=== PATIENT | female | born 1980 | race American Indian/Alaskan Native ===

== ENCOUNTER 2018-03-04 06:32 | Inpatient (IN) | payer SELFPAY ==
[2018-03-04] MEDS ORDERED: LACTATED RINGERS 500 ML IV ONE (06:48)
[2018-03-04 08:38] LABS: Bilirubin,Urine NEG (Negative); Blood,Urine SM (Negative); Color,Urine Yellow (Yellow); Mucus,Urine FEW /HPF; Protein,Urine <15 mg/dL mg/dL (Negative); Urobilinogen,Urine < 2.0 mg/dL (<2.0)
[2018-03-04] MEDS ORDERED: BRETHINE SUB-Q ONE (09:30)
--- NOTE | 2018-03-04 09:41 | Ultrasound Report ---
COMPLETE OB ULTRASOUND: OB followup for well-being Gestation: Felipe Position: Cephalic STEPH = 6.3 cm Placenta: Anterior Placental Grade: 2 Heart Rate: 150 BPM BPD: 8.7 cm = 35 w 1 d HC: 30.8 cm = 34 w 3 d AC: 26.9 cm = 31 w 0 d FL: 6.4 cm = 32 w 6 d HC/AC Ratio: 1.15 Cephalic Index: 86.6 Estimated Weight: 1935 grams Clinical age = 32 w 5 d EDC: 04/24/18 US Gest. Age = 33 w 3 d EDC: 04/19/18 Impression: Oligohydramnios.
[2018-03-04] MEDS ORDERED: SENOKOT S PO PRN (10:04)
[2018-03-04] MEDS ORDERED: ZOFRAN IV PRN (10:04)
[2018-03-04] MEDS ORDERED: MILK OF MAGNESIA PO PRN (10:04)
[2018-03-04] MEDS ORDERED: MYLICON PO PRN (10:04)
[2018-03-04] MEDS ORDERED: TYLENOL PO PRN ×2 (10:04→10:11)
[2018-03-04] MEDS ORDERED: BENADRYL PO PRN (10:04)
[2018-03-04] MEDS ORDERED: ALUM-MAG HYDROX-SIMETH 200-200-20MG/5ML PO PRN (10:04)
[2018-03-04] MEDS ORDERED: COLACE PO PRN ×2 (10:04→10:11)
[2018-03-04 10:39] LABS: Basophils % (Auto) 0.2 % (0.0-1.8); Eosinophils % (Auto) 0.5 % (0.0-4.3); Hematocrit 39.4 % (30.3-42.9); Hemoglobin 13.6 gm/dl (10.1-14.3); Lymphocytes % (Auto) 13.4 % (13.4-35.0); Mean Corpuscular HGB Conc 35 % (30-34); Mean Corpuscular Hemoglobin 34 pg (28-32); Mean Corpuscular Volume 97 fl (79-97); Monocytes # (Auto) 0.6 K/mm3 (0.0-0.8); Monocytes % (Auto) 8.4 % (0.0-7.3); Platelet Count 181 K/mm3 (140-440); Red Blood Count 4.05 M/mm3 (3.65-5.03)
[2018-03-04] MEDS ORDERED: MAGNESIUM SULFATE 4GM/100ML 4 GM/100 ML BAG IV ONE (10:46)
[2018-03-04] MEDS ORDERED: MAGNESIUM SULFATE 40GM/1000ML 40 GM/1,000 ML BAG IV SCH (11:00)
[2018-03-04] MEDS: LACTATED RINGERS 1,000 ML IV SCH (11:15)
[2018-03-04] MEDS: MAGNESIUM SULFATE 40GM/1000ML 40 GM/1,000 ML BAG IV SCH (11:25)
[2018-03-04] MEDS: CELESTONE SOLUSPAN IM SCH (11:30)
[2018-03-04] MEDS: ZITHROMAX 500 MG in NACL 0.9% 250ML 250 ML IV SCH (12:43)
--- NOTE | 2018-03-04 12:50 | History and Physical Report ---
History of Present Illness Date of examination: 03/04/18 Date of admission: 03/04/18 11:28 Chief complaint: leaking at 5 am History of present illness: This is a 37 yo EDC 04/24/18at 32 weeks came into triage this am complaining of big gush of fluid and some contractions. She was checked and noted to be pooling +, fern neg, nitrazine + and STEPH noted to be 6.3. She is apatient with transfer of care into [facility] at 29 weeks. She is advanced maternal age and declined MFM evaluation. She is previous csec ( transverse) and desires repeat csec. She was dx at 24 weeks with UTI and urine cultrue still positive after treatment with macrobid. She is also rubella Immune. Past History Past Medical History: no pertinent history Past Surgical History: section Family/Genetic History: hypertension (father) Social history: no significant social history, . denies: smoking, alcohol abuse, prescription drug abuse - Obstetrical History Expected Date of Delivery: 04/24/18 Actual Gestation: 32 Week(s) 5 Day(s) : 3 Para: 1 Hx # Term Pregnancies: 1 Number of Pregnancies: 0 Spontaneous Abortions: 1 Induced : 0 Medications and Allergies Allergies Allergy/AdvReac Type Severity Reaction Status Date / Time No Known Allergies Allergy Verified 03/04/18 06:51 Home Medications Medication Instructions Recorded Confirmed Last Taken Type Pnv No.95/Ferrous Fum/Folic AC 1 tab PO QDAY 03/04/18 03/04/18 03/03/18 22:00 History [ Formula Tablet] Active Meds: Active Medications Acetaminophen (Tylenol) 650 mg PO Q4H PRN PRN Reason: Pain MILD(1-3)/Fever >100.5/DOWNEY Al Hydrox/Mg Hydrox/Simethicone (Alum-Mag Hydrox-Simeth 499-846-55yl/5ml) 30 ml PO Q6H PRN PRN Reason: Indigestion Betamethasone Acet/Betameth SodPhos (Celestone Soluspan) 12 mg IM Q24HR KEVIN Stop: 03/05/18 10:01 Last Admin: 03/04/18 11:30 Dose: 12 mg Diphenhydramine HCl (Benadryl) 25 mg PO Q6H PRN PRN Reason: Itching Docusate Sodium (Colace) 100 mg PO Q12H PRN PRN Reason: Constipation Ampicillin Sodium (Polycillin/Ns 2 Gm/100 Ml) 2 gm in 100 mls @ 100 mls/hr IV Q6HR KEVIN; Protocol Stop: 03/06/18 06:59 Azithromycin 500 mg/ Sodium (Chloride) 250 mls @ 250 mls/hr IV Q24HR KEVIN Last Admin: 03/04/18 12:43 Dose: 250 mls/hr Ceftriaxone Sodium (Rocephin/Ns 1 Gm/50 Ml) 1 gm in 50 mls @ 100 mls/hr IV Q24H KEVIN; Protocol Lactated Ringer's (Lactated Ringers) 1,000 mls @ 125 mls/hr IV DIRECT KEVIN Last Admin: 03/04/18 11:15 Dose: 125 mls/hr Magnesium Sulfate (Magnesium Sulfate 40gm/1000ml) 40 gm in 1,000 mls @ 25 mls/ hr IV DIRECT KEVIN Magnesium Hydroxide (Milk Of Magnesia) 30 ml PO QHS PRN PRN Reason: Laxative Effect Multivitamins/Iron/Calcium ( Vitamin) 1 each PO QDAY KEVIN Ondansetron HCl (Zofran) 4 mg IV Q6H PRN PRN Reason: Nausea And Vomiting Senna/Docusate Sodium (Senokot S) 2 tab PO Q12H PRN PRN Reason: Laxative Effect Simethicone (Mylicon) 80 mg PO Q6H PRN PRN Reason: Gas pain Review of Systems All systems: negative Genitourinary: leakage of fluid, contractions - Vital Signs Vital signs: Vital Signs Pulse BP 109 H 128/82 03/04/18 06:52 03/04/18 06:52 Temp Pulse Resp BP Pulse Ox 98.1 F 89 16 123/75 99 03/04/18 11:30 03/04/18 12:47 03/04/18 07:08 03/04/18 12:39 03/04/18 12:47 - Physical Exam Breasts: Positive: normal Cardiovascular: Regular rate, Normal S1 Lungs: Positive: Clear to auscultation, Normal air movement Abdomen: Positive: normal appearance, soft, normal bowel sounds. Negative: distention, tenderness, guarding Genitourinary (Female): Positive: normal external genitalia, normal perenium Vulva: both: normal Uterus: Positive: normal size, normal contour Anus/Rectum: Positive: normal perianal skin Extremities: Positive: normal Deep Tendon Reflex Grade: Normal +2 - Obstetrical FHR: category 1 Cervical Dilatation: 1 Cervical Effacement Percentage: 80 station: -3 Uterine Contraction Pattern: Regular Uterine Tone Measurement Phase: Contraction Uterine Contraction Intensity: Mild Results Result Diagrams: 03/04/18 10:18 Abnormal lab results 03/04/18 Range/Units 10:18 MCH 34 H (28-32) pg MCHC 35 H (30-34) % RDW 13.0 L (13.2-15.2) % [place] % (Auto) 8.4 H (0.0-7.3) % Lymph # 1.0 L (1.2-5.4) K/mm3 Seg Neutrophils % 77.5 H (40.0-70.0) % All other labs normal. Ultrasound: report reviewed Assessment and Plan A/P IUP 32+5 weeks, vertex PPROM contractions US reviewed vertex, oligo 6.3, latency abx with azithro and amp for 2 days IV then po BMZ ordered 12mg IM x24hrs ( 2) mag 4g/2g for neuroprotection consult with MFM consult with MARTINA
--- NOTE | 2018-03-04 14:27 | Consultation ---
History of Present Illness Consult date: 03/04/18 Reason for consult: prematurity (32 5/7 ROM aziza and previous c section) Documentation - Maternal Info Amniotic Membrane Rupture Date: 03/04/18 Amniotic Membrane Rupture Time: 05:00 - information: Height 5 ft 10 in Medications and Allergies Allergies Allergy/AdvReac Type Severity Reaction Status Date / Time No Known Allergies Allergy Verified 03/04/18 06:51 Home Medications Medication Instructions Recorded Confirmed Last Taken Type Pnv No.95/Ferrous Fum/Folic AC 1 tab PO QDAY 03/04/18 03/04/18 03/03/18 22:00 History [ Formula Tablet] Active Meds: Active Medications Acetaminophen (Tylenol) 650 mg PO Q4H PRN PRN Reason: Pain MILD(1-3)/Fever >100.5/DOWNEY Al Hydrox/Mg Hydrox/Simethicone (Alum-Mag Hydrox-Simeth 012-273-49oh/5ml) 30 ml PO Q6H PRN PRN Reason: Indigestion Betamethasone Acet/Betameth SodPhos (Celestone Soluspan) 12 mg IM Q24HR KEVIN Stop: 03/05/18 10:01 Last Admin: 03/04/18 11:30 Dose: 12 mg Diphenhydramine HCl (Benadryl) 25 mg PO Q6H PRN PRN Reason: Itching Docusate Sodium (Colace) 100 mg PO Q12H PRN PRN Reason: Constipation Ampicillin Sodium (Polycillin/Ns 2 Gm/100 Ml) 2 gm in 100 mls @ 100 mls/hr IV Q6HR KEVIN; Protocol Stop: 03/06/18 06:59 Azithromycin 500 mg/ Sodium (Chloride) 250 mls @ 250 mls/hr IV Q24HR KEVIN Last Admin: 03/04/18 12:43 Dose: 250 mls/hr Ceftriaxone Sodium (Rocephin/Ns 1 Gm/50 Ml) 1 gm in 50 mls @ 100 mls/hr IV Q24H KEVIN; Protocol Lactated Ringer's (Lactated Ringers) 1,000 mls @ 125 mls/hr IV DIRECT KEVIN Last Admin: 03/04/18 11:15 Dose: 125 mls/hr Magnesium Sulfate (Magnesium Sulfate 40gm/1000ml) 40 gm in 1,000 mls @ 25 mls/ hr IV DIRECT KEVIN Last Admin: 03/04/18 11:25 Dose: 2 gm/hr, 50 mls/hr Magnesium Hydroxide (Milk Of Magnesia) 30 ml PO QHS PRN PRN Reason: Laxative Effect Multivitamins/Iron/Calcium ( Vitamin) 1 each PO QDAY KEVIN Ondansetron HCl (Zofran) 4 mg IV Q6H PRN PRN Reason: Nausea And Vomiting Senna/Docusate Sodium (Senokot S) 2 tab PO Q12H PRN PRN Reason: Laxative Effect Simethicone (Mylicon) 80 mg PO Q6H PRN PRN Reason: Gas pain Exam Vital Signs Pulse BP 109 H 128/82 03/04/18 06:52 03/04/18 06:52 Temp Pulse Resp BP Pulse Ox 98.1 F 107 H 16 116/75 97 03/04/18 11:30 03/04/18 14:22 03/04/18 07:08 03/04/18 13:39 03/04/18 14:22 Results - Laboratory Findings 03/04/18 10:18 Abnormal lab results 03/04/18 Range/Units 10:18 MCH 34 H (28-32) pg MCHC 35 H (30-34) % RDW 13.0 L (13.2-15.2) % [place] % (Auto) 8.4 H (0.0-7.3) % Lymph # 1.0 L (1.2-5.4) K/mm3 Seg Neutrophils % 77.5 H (40.0-70.0) % Assessment and Plan Consult with mother and family member regarding POC if 32 5/7 week son is born today. Reviewed respiratory distress and benefits of surfactant treatment as well as nasal cannula O2 for support. Minimal stimulation and IVH discussed. Encouraged breast feeding and pumping. Reviewed nutritional status and requirements at this gestation inclusing umbilical lines, infection control, and proposed discharge time frame. All questions answered. Patient and family verbalized understanding. Encouraged to call with any further questions. Plan: NICU will attend delivery Call NICU with questions
[2018-03-04] MEDS: ROCEPHIN/NS 1 GM/50 ML 1 GM/50 ML BAG IV SCH (15:59)
--- NOTE | 2018-03-04 17:38 | Consultation ---
History of Present Illness Consult date: 03/04/18 Requesting physician: KIARA GARDNER History of present illness: 37 y/o RAJIV 04/24/18 now 32 5/7 weeks presented with PPROM at 5 am Reports gush of fluid at 5 am Denies vag bleeding, Chill, abd pain At bedside ctx's started at 5-8 minutes apart Pos pooling, Nit Pos IVF Preg in [place] Denies complications =------- OB history 2011 C/S at 40 weeks Breech F first tri SAB Denies med ds, STD, C/D/D US EFW at 1935 grams - 27% Abd soft NT ext NT tr edema EFM 140's ctx q 5 to 8" Past History Past Medical History: no pertinent history Past Surgical History: section Family/Genetic History: hypertension (father) - Obstetrical History : 3 Medications and Allergies Allergies Allergy/AdvReac Type Severity Reaction Status Date / Time No Known Allergies Allergy Verified 03/04/18 06:51 Home Medications Medication Instructions Recorded Confirmed Last Taken Type Pnv No.95/Ferrous Fum/Folic AC 1 tab PO QDAY 03/04/18 03/04/18 03/03/18 22:00 History [ Formula Tablet] Active Meds: Active Medications Acetaminophen (Tylenol) 650 mg PO Q4H PRN PRN Reason: Pain MILD(1-3)/Fever >100.5/DOWNEY Al Hydrox/Mg Hydrox/Simethicone (Alum-Mag Hydrox-Simeth 472-180-92cm/5ml) 30 ml PO Q6H PRN PRN Reason: Indigestion Betamethasone Acet/Betameth SodPhos (Celestone Soluspan) 12 mg IM Q24HR KEVIN Stop: 03/05/18 10:01 Last Admin: 03/04/18 11:30 Dose: 12 mg Diphenhydramine HCl (Benadryl) 25 mg PO Q6H PRN PRN Reason: Itching Docusate Sodium (Colace) 100 mg PO Q12H PRN PRN Reason: Constipation Ampicillin Sodium (Polycillin/Ns 2 Gm/100 Ml) 2 gm in 100 mls @ 100 mls/hr IV Q6HR KEVIN; Protocol Stop: 03/06/18 06:59 Azithromycin 500 mg/ Sodium (Chloride) 250 mls @ 250 mls/hr IV Q24HR KEVIN Last Admin: 03/04/18 12:43 Dose: 250 mls/hr Ceftriaxone Sodium (Rocephin/Ns 1 Gm/50 Ml) 1 gm in 50 mls @ 100 mls/hr IV Q24H KEVIN; Protocol Last Admin: 03/04/18 15:59 Dose: 100 mls/hr Lactated Ringer's (Lactated Ringers) 1,000 mls @ 125 mls/hr IV DIRECT KEVIN Last Admin: 03/04/18 11:15 Dose: 125 mls/hr Magnesium Sulfate (Magnesium Sulfate 40gm/1000ml) 40 gm in 1,000 mls @ 25 mls/ hr IV DIRECT KEVIN Last Admin: 03/04/18 11:25 Dose: 2 gm/hr, 50 mls/hr Magnesium Hydroxide (Milk Of Magnesia) 30 ml PO QHS PRN PRN Reason: Laxative Effect Multivitamins/Iron/Calcium ( Vitamin) 1 each PO QDAY KEVNI Ondansetron HCl (Zofran) 4 mg IV Q6H PRN PRN Reason: Nausea And Vomiting Senna/Docusate Sodium (Senokot S) 2 tab PO Q12H PRN PRN Reason: Laxative Effect Simethicone (Mylicon) 80 mg PO Q6H PRN PRN Reason: Gas pain - Vital Signs Vital signs: Vital Signs Pulse BP 109 H 128/82 03/04/18 06:52 03/04/18 06:52 Temp Pulse Resp BP Pulse Ox 98.1 F 109 H 16 121/75 99 03/04/18 11:30 03/04/18 17:08 03/04/18 07:08 03/04/18 16:41 03/04/18 17:08 Results Result Diagrams: 03/04/18 10:18 Abnormal lab results 03/04/18 Range/Units 10:18 MCH 34 H (28-32) pg MCHC 35 H (30-34) % RDW 13.0 L (13.2-15.2) % [place] % (Auto) 8.4 H (0.0-7.3) % Lymph # 1.0 L (1.2-5.4) K/mm3 Seg Neutrophils % 77.5 H (40.0-70.0) % All other labs normal. Assessment and Plan 1. Felipe IUP at 32 5/7 weeks 2. PPROM STEPH was 6.5 cm 3. IVF Preg 4. Prior C/S for Breech Recommendations: 1. Steroids for FLM 2. Mg - would dc if contractions increasing 3. Sign consent for repeat c/s 4. NICU consult 5. Antibiotics per protocol 6. Delivery at 34 weeks if undelivered 7. Delivery for S/S of chorio or compromise 8. BPP twice per week and US growth q 2 weeks 9. If Contractions increasing and active labor ensues would proceed with repeat C/S
[2018-03-04] MEDS ORDERED: TYLENOL PO ONE (17:43)
[2018-03-04] MEDS: POLYCILLIN/NS 2 GM/100 ML 2 GM/100 ML BAG IV SCH (17:50)
[2018-03-05] MEDS: POLYCILLIN/NS 2 GM/100 ML 2 GM/100 ML BAG IV SCH ×7 (00:15→23:57)
[2018-03-05] MEDS: LACTATED RINGERS 1,000 ML IV SCH ×2 (00:30→17:28)
[2018-03-05] MEDS: MAGNESIUM SULFATE 40GM/1000ML 40 GM/1,000 ML BAG IV SCH (06:56)
--- NOTE | 2018-03-05 07:20 | Ultrasound Report ---
BIOPHYSICAL PROFILE: INDICATION: well being. COMPARISON: None similar. TECHNIQUE: Transabdominal ultrasound with Doppler interrogation. 2 - breathing movements 2 - movements 2 - posture and tone 0 - Qualitative amniotic fluid volume 6 - TOTAL SCORE OF POSSIBLE 8 Heart Rate (bpm) 143 CONCLUSION: Findings, as above.
[2018-03-05] MEDS ORDERED: PRENATAL VITAMIN PO SCH (10:00)
[2018-03-05] MEDS: PRENATAL VITAMIN PO SCH (11:08)
[2018-03-05] MEDS: CELESTONE SOLUSPAN IM SCH (11:42)
--- NOTE | 2018-03-05 13:05 | Progress Note ---
Assessment and Plan A: IUP at 32w6d PPROM Previous section [facility] [employer] Advanced Maternal Age P: Pad counts and closely monitor for vaginal bleeding. If bleeding increases or she begins to contract again, plan to proceed with delivery. Continue latency antibiotics. Subjective - Subjective Date of service: 03/05/18 Principal diagnosis: IUP at 32w6d; PPROM, Interval history: Pt reports passing a clot when she stood after lying for several hours. Reports irregular contractions last night, but today she is not feeling many. She denies fever, chills or abdominal tenderness. Patient reports: loss of fluid, vaginal bleeding (per HPI), contractions (rare) , no new complaints Objective - Vital Signs Vital Signs: Vital Signs - 12hr 03/05/18 03/05/18 03/05/18 01:14 01:19 01:24 Temperature Pulse Rate 89 92 H 89 Respiratory Rate Blood Pressure Blood Pressure [Left] O2 Sat by Pulse 98 97 97 Oximetry 03/05/18 03/05/18 03/05/18 01:29 01:34 01:39 Temperature Pulse Rate 79 74 75 Respiratory Rate Blood Pressure 117/67 Blood Pressure [Left] O2 Sat by Pulse 98 99 98 Oximetry 03/05/18 03/05/18 03/05/18 01:44 01:49 01:54 Temperature Pulse Rate 82 75 91 H Respiratory Rate Blood Pressure Blood Pressure [Left] O2 Sat by Pulse 98 98 99 Oximetry 03/05/18 03/05/18 03/05/18 01:59 02:04 02:09 Temperature Pulse Rate 79 74 73 Respiratory Rate Blood Pressure Blood Pressure [Left] O2 Sat by Pulse 98 95 97 Oximetry 03/05/18 03/05/18 03/05/18 02:14 02:19 02:24 Temperature Pulse Rate 76 78 75 Respiratory Rate Blood Pressure Blood Pressure [Left] O2 Sat by Pulse 96 97 96 Oximetry 03/05/18 03/05/18 03/05/18 02:29 02:34 02:39 Temperature Pulse Rate 71 70 85 Respiratory Rate Blood Pressure 110/66 Blood Pressure [Left] O2 Sat by Pulse 97 96 96 Oximetry 03/05/18 03/05/18 03/05/18 02:44 02:49 02:54 Temperature Pulse Rate 72 70 75 Respiratory Rate Blood Pressure Blood Pressure [Left] O2 Sat by Pulse 95 97 100 Oximetry 03/05/18 03/05/18 03/05/18 02:59 03:04 03:09 Temperature Pulse Rate 76 69 66 Respiratory Rate Blood Pressure Blood Pressure [Left] O2 Sat by Pulse 100 100 100 Oximetry 03/05/18 03/05/18 03/05/18 03:14 03:19 03:24 Temperature Pulse Rate 64 68 66 Respiratory Rate Blood Pressure Blood Pressure [Left] O2 Sat by Pulse 100 100 100 Oximetry 03/05/18 03/05/18 03/05/18 03:29 03:34 03:39 Temperature Pulse Rate 67 68 84 Respiratory Rate Blood Pressure Blood Pressure [Left] O2 Sat by Pulse 100 100 100 Oximetry 03/05/18 03/05/18 03/05/18 03:41 03:44 03:49 Temperature Pulse Rate 72 78 66 Respiratory Rate Blood Pressure 108/60 Blood Pressure [Left] O2 Sat by Pulse 100 100 Oximetry 03/05/18 03/05/18 03/05/18 03:54 03:59 04:04 Temperature Pulse Rate 69 68 67 Respiratory Rate Blood Pressure Blood Pressure [Left] O2 Sat by Pulse 100 100 100 Oximetry 03/05/18 03/05/18 03/05/18 04:09 04:14 04:19 Temperature Pulse Rate 85 77 77 Respiratory Rate Blood Pressure Blood Pressure [Left] O2 Sat by Pulse 100 100 100 Oximetry 03/05/18 03/05/18 03/05/18 04:24 04:29 04:34 Temperature Pulse Rate 78 86 74 Respiratory Rate Blood Pressure Blood Pressure [Left] O2 Sat by Pulse 100 100 100 Oximetry 03/05/18 03/05/18 03/05/18 04:39 04:40 04:44 Temperature Pulse Rate 83 70 75 Respiratory Rate Blood Pressure 107/66 Blood Pressure [Left] O2 Sat by Pulse 100 100 Oximetry 03/05/18 03/05/18 03/05/18 04:49 04:54 04:59 Temperature Pulse Rate 68 63 64 Respiratory Rate Blood Pressure Blood Pressure [Left] O2 Sat by Pulse 100 100 100 Oximetry 03/05/18 03/05/18 03/05/18 05:04 05:09 05:14 Temperature Pulse Rate 69 66 67 Respiratory Rate Blood Pressure Blood Pressure [Left] O2 Sat by Pulse 100 100 100 Oximetry 03/05/18 03/05/18 03/05/18 05:19 05:24 05:29 Temperature Pulse Rate 66 65 87 Respiratory Rate Blood Pressure Blood Pressure [Left] O2 Sat by Pulse 100 100 99 Oximetry 03/05/18 03/05/18 03/05/18 05:34 05:39 05:44 Temperature Pulse Rate 70 69 72 Respiratory Rate Blood Pressure 102/62 Blood Pressure [Left] O2 Sat by Pulse 100 100 100 Oximetry 03/05/18 03/05/18 03/05/18 05:49 05:54 05:59 Temperature Pulse Rate 67 66 70 Respiratory Rate Blood Pressure Blood Pressure [Left] O2 Sat by Pulse 100 100 100 Oximetry 03/05/18 03/05/18 03/05/18 06:04 06:09 06:14 Temperature Pulse Rate 74 70 63 Respiratory Rate Blood Pressure Blood Pressure [Left] O2 Sat by Pulse 100 100 100 Oximetry 03/05/18 03/05/18 03/05/18 06:19 06:24 06:29 Temperature Pulse Rate 70 65 63 Respiratory Rate Blood Pressure Blood Pressure [Left] O2 Sat by Pulse 100 100 100 Oximetry 03/05/18 03/05/18 03/05/18 06:34 06:39 06:44 Temperature Pulse Rate 63 64 72 Respiratory Rate Blood Pressure 107/64 Blood Pressure [Left] O2 Sat by Pulse 100 100 100 Oximetry 03/05/18 03/05/18 03/05/18 06:49 06:54 06:55 Temperature Pulse Rate 76 91 H 51 L Respiratory Rate Blood Pressure Blood Pressure [Left] O2 Sat by Pulse 100 100 82 L Oximetry 03/05/18 03/05/18 03/05/18 07:00 07:05 07:10 Temperature Pulse Rate 79 87 77 Respiratory Rate Blood Pressure Blood Pressure [Left] O2 Sat by Pulse 100 100 100 Oximetry 03/05/18 03/05/18 03/05/18 07:15 07:20 07:25 Temperature Pulse Rate 80 78 78 Respiratory Rate Blood Pressure Blood Pressure [Left] O2 Sat by Pulse 100 100 100 Oximetry 03/05/18 03/05/18 03/05/18 07:30 07:35 07:39 Temperature Pulse Rate 75 79 75 Respiratory Rate Blood Pressure 99/56 Blood Pressure [Left] O2 Sat by Pulse 100 100 Oximetry 03/05/18 03/05/18 03/05/18 07:40 07:45 07:50 Temperature Pulse Rate 77 78 77 Respiratory Rate Blood Pressure Blood Pressure [Left] O2 Sat by Pulse 100 100 100 Oximetry 03/05/18 03/05/18 03/05/18 07:55 08:00 08:05 Temperature Pulse Rate 90 80 80 Respiratory Rate Blood Pressure Blood Pressure [Left] O2 Sat by Pulse 100 100 100 Oximetry 03/05/18 03/05/18 03/05/18 08:10 08:15 08:16 Temperature 97.8 F Pulse Rate 85 76 87 Respiratory 18 Rate Blood Pressure Blood Pressure 121/66 [Left] O2 Sat by Pulse 100 100 100 Oximetry 03/05/18 03/05/18 03/05/18 08:20 08:25 08:30 Temperature Pulse Rate 82 82 89 Respiratory Rate Blood Pressure 121/66 Blood Pressure [Left] O2 Sat by Pulse 100 100 100 Oximetry 03/05/18 03/05/18 03/05/18 08:35 08:39 08:40 Temperature Pulse Rate 76 75 82 Respiratory Rate Blood Pressure 102/59 Blood Pressure [Left] O2 Sat by Pulse 100 100 Oximetry 03/05/18 03/05/18 03/05/18 08:45 08:50 08:55 Temperature Pulse Rate 79 79 88 Respiratory Rate Blood Pressure Blood Pressure [Left] O2 Sat by Pulse 100 100 100 Oximetry 03/05/18 03/05/18 03/05/18 09:00 09:05 09:10 Temperature Pulse Rate 92 H 94 H 79 Respiratory Rate Blood Pressure Blood Pressure [Left] O2 Sat by Pulse 100 100 100 Oximetry 03/05/18 03/05/18 03/05/18 09:15 09:20 09:25 Temperature Pulse Rate 88 87 84 Respiratory Rate Blood Pressure Blood Pressure [Left] O2 Sat by Pulse 100 100 100 Oximetry 03/05/18 03/05/18 03/05/18 09:30 09:35 09:39 Temperature Pulse Rate 88 95 H 85 Respiratory Rate Blood Pressure 114/65 Blood Pressure [Left] O2 Sat by Pulse 97 97 Oximetry 03/05/18 03/05/18 03/05/18 09:40 09:45 09:50 Temperature Pulse Rate 96 H 90 98 H Respiratory Rate Blood Pressure Blood Pressure [Left] O2 Sat by Pulse 98 98 97 Oximetry 03/05/18 03/05/18 03/05/18 09:55 10:00 10:05 Temperature Pulse Rate 88 94 H 87 Respiratory Rate Blood Pressure Blood Pressure [Left] O2 Sat by Pulse 97 99 100 Oximetry 03/05/18 03/05/18 03/05/18 10:10 10:15 10:20 Temperature Pulse Rate 86 86 93 H Respiratory Rate Blood Pressure Blood Pressure [Left] O2 Sat by Pulse 100 100 99 Oximetry 03/05/18 03/05/18 03/05/18 10:25 10:39 10:41 Temperature Pulse Rate 89 89 90 Respiratory Rate Blood Pressure 116/70 Blood Pressure [Left] O2 Sat by Pulse 97 100 Oximetry 03/05/18 03/05/18 03/05/18 10:46 10:51 10:56 Temperature Pulse Rate 85 89 90 Respiratory Rate Blood Pressure Blood Pressure [Left] O2 Sat by Pulse 99 98 99 Oximetry 03/05/18 03/05/18 03/05/18 11:01 11:06 11:11 Temperature Pulse Rate 85 81 87 Respiratory Rate Blood Pressure Blood Pressure [Left] O2 Sat by Pulse 95 94 96 Oximetry 03/05/18 03/05/18 03/05/18 11:39 12:21 12:39 Temperature 98.1 F Pulse Rate 85 85 92 H Respiratory 18 Rate Blood Pressure 118/67 120/75 Blood Pressure 118/67 [Left] O2 Sat by Pulse Oximetry - Exam Breasts: deferred Abdomen: Present: soft (gravid ) Uterus: Present: normal (gravid ) FHR: category 2 Uterine Contraction Monitor Mode: External Cervical Dilatation: 1.5 Cervical Effacement Percentage: 60 station: -2 Uterine Contraction Pattern: Irregular Uterine Tone Measurement Phase: Resting Extremities: normal - Labs Labs: Abnormal Labs 03/04/18 03/05/18 03/05/18 10:18 04:00 05:56 MCH 34 H MCHC 35 H RDW 13.0 L [place] % (Auto) 8.4 H Lymph # 1.0 L Seg Neutrophils % 77.5 H Magnesium 5.30 H 5.50 H Laboratory Results - last 24 hr 03/05/18 03/05/18 04:00 05:56 Magnesium 5.30 H 5.50 H
[2018-03-05] MEDS: ROCEPHIN/NS 1 GM/50 ML 1 GM/50 ML BAG IV SCH (15:41)
[2018-03-05] MEDS: ZITHROMAX 500 MG in NACL 0.9% 250ML 250 ML IV SCH (20:19)
[2018-03-06] MEDS: MAGNESIUM SULFATE 40GM/1000ML 40 GM/1,000 ML BAG IV SCH (03:40)
[2018-03-06] MEDS: POLYCILLIN/NS 2 GM/100 ML 2 GM/100 ML BAG IV SCH (06:12)
--- NOTE | 2018-03-06 09:06 | Consultation ---
History of Present Illness Consult date: 03/06/18 Requesting physician: GURPREET RANKIN History of present illness: 37 y/o RAJIV 04/24/18 now 33 0/7 weeks presented with PPROM Reported light vag bleeding yesturday - now spotting - some leaking Denies Chill, abd pain Occ ctx Pos pooling, Nit Pos IVF Preg in [place] Denies complications =------- OB history 2011 C/S at 40 weeks Breech F first tri SAB Denies med ds, STD, C/D/D US EFW at 1935 grams - 27% Abd soft NT gravid NT ext nt no edema Past History Past Medical History: no pertinent history Past Surgical History: section Family/Genetic History: hypertension (father) - Obstetrical History : 3 Medications and Allergies Allergies Allergy/AdvReac Type Severity Reaction Status Date / Time No Known Allergies Allergy Verified 03/04/18 06:51 Home Medications Medication Instructions Recorded Confirmed Last Taken Type Pnv No.95/Ferrous Fum/Folic AC 1 tab PO QDAY 03/04/18 03/04/18 03/03/18 22:00 History [ Formula Tablet] Active Meds: Active Medications Acetaminophen (Tylenol) 650 mg PO Q4H PRN PRN Reason: Pain MILD(1-3)/Fever >100.5/DOWNEY Al Hydrox/Mg Hydrox/Simethicone (Alum-Mag Hydrox-Simeth 086-214-18yz/5ml) 30 ml PO Q6H PRN PRN Reason: Indigestion Diphenhydramine HCl (Benadryl) 25 mg PO Q6H PRN PRN Reason: Itching Docusate Sodium (Colace) 100 mg PO Q12H PRN PRN Reason: Constipation Azithromycin 500 mg/ Sodium (Chloride) 250 mls @ 250 mls/hr IV Q24HR KEVIN Last Admin: 03/05/18 20:19 Dose: 250 mls/hr Ceftriaxone Sodium (Rocephin/Ns 1 Gm/50 Ml) 1 gm in 50 mls @ 100 mls/hr IV Q24H KEVIN; Protocol Last Admin: 03/05/18 15:41 Dose: 100 mls/hr Lactated Ringer's (Lactated Ringers) 1,000 mls @ 125 mls/hr IV DIRECT KEVIN Last Admin: 03/05/18 17:28 Dose: 125 mls/hr Magnesium Sulfate (Magnesium Sulfate 40gm/1000ml) 40 gm in 1,000 mls @ 25 mls/ hr IV DIRECT KEVIN Last Admin: 03/06/18 03:40 Dose: 2 gm/hr, 50 mls/hr Magnesium Hydroxide (Milk Of Magnesia) 30 ml PO QHS PRN PRN Reason: Laxative Effect Multivitamins/Iron/Calcium ( Vitamin) 1 each PO QDAY KEVIN Last Admin: 03/05/18 11:08 Dose: 1 each Ondansetron HCl (Zofran) 4 mg IV Q6H PRN PRN Reason: Nausea And Vomiting Senna/Docusate Sodium (Senokot S) 2 tab PO Q12H PRN PRN Reason: Laxative Effect Simethicone (Mylicon) 80 mg PO Q6H PRN PRN Reason: Gas pain - Vital Signs Vital signs: Vital Signs Pulse BP 109 H 128/82 03/04/18 06:52 03/04/18 06:52 Temp Pulse Resp BP Pulse Ox 97.9 F 77 18 119/69 98 03/06/18 08:21 03/06/18 08:39 03/06/18 08:21 03/06/18 08:39 03/06/18 08:16 Results Result Diagrams: 03/04/18 10:18 Abnormal lab results 03/05/18 03/05/18 03/06/18 Range/Units 12:26 18:43 05:06 Magnesium 5.30 H 5.40 H 5.10 H (1.7-2.3) mg/dL All other labs normal. Assessment and Plan 1. Felipe IUP at 33 0/7 weeks 2. PPROM 3. Prior C/S 4. IVF Preg 5. Min spotting - Recs: 1. EFM 2. Delivery at 34 weeks 3. BPP Twice per week 4. Delivery for S/S of chorio or compromise
[2018-03-06] MEDS: PRENATAL VITAMIN PO SCH (10:38)
[2018-03-06] MEDS: ZITHROMAX 500 MG in NACL 0.9% 250ML 250 ML IV SCH (10:52)
[2018-03-06] MEDS: LACTATED RINGERS 1,000 ML IV SCH ×2 (12:32→22:48)
--- NOTE | 2018-03-06 13:06 | Progress Note ---
Assessment and Plan A: IUP at 33w0d PPROM on 03/04/18 on latency antibiotics Previous section [employer] Advanced Maternal Age P: Pad counts and closely monitor for vaginal bleeding. If bleeding increases or she begins to contract again, plan to proceed with delivery. Continue latency antibiotics. Subjective - Subjective Date of service: 03/06/18 Principal diagnosis: IUP at 33w0d; PPROM, Interval history: No overnight events Patient reports: loss of fluid, vaginal bleeding (spotting), contractions (rare) , no new complaints Objective - Vital Signs Vital Signs: Vital Signs - 12hr 03/06/18 03/06/18 03/06/18 01:19 01:24 01:29 Temperature Pulse Rate 67 67 68 Respiratory Rate Blood Pressure Blood Pressure [Left] O2 Sat by Pulse 100 100 100 Oximetry 03/06/18 03/06/18 03/06/18 01:34 01:39 01:44 Temperature Pulse Rate 69 67 75 Respiratory Rate Blood Pressure 100/57 Blood Pressure [Left] O2 Sat by Pulse 100 100 100 Oximetry 03/06/18 03/06/18 03/06/18 01:49 01:54 01:59 Temperature Pulse Rate 73 69 68 Respiratory Rate Blood Pressure Blood Pressure [Left] O2 Sat by Pulse 100 100 100 Oximetry 03/06/18 03/06/18 03/06/18 02:04 02:09 02:14 Temperature Pulse Rate 72 71 80 Respiratory Rate Blood Pressure Blood Pressure [Left] O2 Sat by Pulse 100 100 100 Oximetry 03/06/18 03/06/18 03/06/18 02:19 02:24 02:29 Temperature Pulse Rate 68 69 72 Respiratory Rate Blood Pressure Blood Pressure [Left] O2 Sat by Pulse 100 100 100 Oximetry 03/06/18 03/06/18 03/06/18 02:34 02:39 02:44 Temperature Pulse Rate 70 81 75 Respiratory Rate Blood Pressure 103/60 Blood Pressure [Left] O2 Sat by Pulse 97 96 100 Oximetry 03/06/18 03/06/18 03/06/18 02:49 02:54 02:55 Temperature Pulse Rate 81 68 68 Respiratory Rate Blood Pressure Blood Pressure [Left] O2 Sat by Pulse 100 97 94 Oximetry 03/06/18 03/06/18 03/06/18 02:59 03:04 03:09 Temperature Pulse Rate 68 68 68 Respiratory Rate Blood Pressure Blood Pressure [Left] O2 Sat by Pulse 94 95 95 Oximetry 03/06/18 03/06/18 03/06/18 03:14 03:16 03:19 Temperature Pulse Rate 67 68 69 Respiratory Rate Blood Pressure Blood Pressure [Left] O2 Sat by Pulse 95 94 95 Oximetry 03/06/18 03/06/18 03/06/18 03:21 03:24 03:27 Temperature Pulse Rate 72 69 72 Respiratory Rate Blood Pressure Blood Pressure [Left] O2 Sat by Pulse 94 96 94 Oximetry 03/06/18 03/06/18 03/06/18 03:29 03:34 03:35 Temperature Pulse Rate 91 H 78 68 Respiratory Rate Blood Pressure Blood Pressure [Left] O2 Sat by Pulse 96 97 93 Oximetry 03/06/18 03/06/18 03/06/18 03:39 03:40 03:43 Temperature 98.0 F Pulse Rate 70 70 75 Respiratory 18 Rate Blood Pressure 105/60 Blood Pressure 105/60 [Left] O2 Sat by Pulse 96 89 99 Oximetry 03/06/18 03/06/18 03/06/18 03:44 03:48 03:49 Temperature Pulse Rate 69 84 73 Respiratory Rate Blood Pressure Blood Pressure [Left] O2 Sat by Pulse 95 90 97 Oximetry 03/06/18 03/06/18 03/06/18 03:54 03:59 04:04 Temperature Pulse Rate 77 96 H 74 Respiratory Rate Blood Pressure Blood Pressure [Left] O2 Sat by Pulse 97 94 95 Oximetry 03/06/18 03/06/18 03/06/18 04:09 04:14 04:19 Temperature Pulse Rate 81 75 78 Respiratory Rate Blood Pressure Blood Pressure [Left] O2 Sat by Pulse 96 97 97 Oximetry 03/06/18 03/06/18 03/06/18 04:24 04:30 04:35 Temperature Pulse Rate 78 72 72 Respiratory Rate Blood Pressure Blood Pressure [Left] O2 Sat by Pulse 97 97 97 Oximetry 03/06/18 03/06/18 03/06/18 04:39 04:40 04:45 Temperature Pulse Rate 70 71 73 Respiratory Rate Blood Pressure 90/54 Blood Pressure [Left] O2 Sat by Pulse 97 98 Oximetry 03/06/18 03/06/18 03/06/18 04:50 04:55 05:00 Temperature Pulse Rate 72 72 72 Respiratory Rate Blood Pressure Blood Pressure [Left] O2 Sat by Pulse 98 98 98 Oximetry 03/06/18 03/06/18 03/06/18 05:05 05:10 05:15 Temperature Pulse Rate 73 103 H 74 Respiratory Rate Blood Pressure Blood Pressure [Left] O2 Sat by Pulse 98 99 100 Oximetry 03/06/18 03/06/18 03/06/18 05:16 05:20 05:25 Temperature Pulse Rate 92 H 72 72 Respiratory Rate Blood Pressure Blood Pressure [Left] O2 Sat by Pulse 91 97 96 Oximetry 03/06/18 03/06/18 03/06/18 05:30 05:35 05:39 Temperature Pulse Rate 70 71 70 Respiratory Rate Blood Pressure 104/57 Blood Pressure [Left] O2 Sat by Pulse 93 94 Oximetry 03/06/18 03/06/18 03/06/18 05:40 05:45 05:46 Temperature Pulse Rate 71 72 89 Respiratory Rate Blood Pressure Blood Pressure [Left] O2 Sat by Pulse 96 96 89 Oximetry 03/06/18 03/06/18 03/06/18 05:50 05:53 05:55 Temperature Pulse Rate 76 80 80 Respiratory Rate Blood Pressure Blood Pressure [Left] O2 Sat by Pulse 97 94 94 Oximetry 03/06/18 03/06/18 03/06/18 05:58 06:00 06:05 Temperature Pulse Rate 77 73 71 Respiratory Rate Blood Pressure Blood Pressure [Left] O2 Sat by Pulse 94 96 97 Oximetry 03/06/18 03/06/18 03/06/18 06:07 06:10 06:15 Temperature Pulse Rate 72 76 72 Respiratory Rate Blood Pressure Blood Pressure [Left] O2 Sat by Pulse 94 96 96 Oximetry 03/06/18 03/06/18 03/06/18 06:20 06:25 06:30 Temperature Pulse Rate 72 72 72 Respiratory Rate Blood Pressure Blood Pressure [Left] O2 Sat by Pulse 96 95 96 Oximetry 03/06/18 03/06/18 03/06/18 06:35 06:36 06:39 Temperature Pulse Rate 74 87 71 Respiratory Rate Blood Pressure 107/58 Blood Pressure [Left] O2 Sat by Pulse 96 93 Oximetry 03/06/18 03/06/18 03/06/18 06:40 06:44 06:45 Temperature Pulse Rate 71 83 81 Respiratory Rate Blood Pressure Blood Pressure [Left] O2 Sat by Pulse 96 80 L 84 Oximetry 03/06/18 03/06/18 03/06/18 06:50 06:51 06:55 Temperature Pulse Rate 73 74 71 Respiratory Rate Blood Pressure Blood Pressure [Left] O2 Sat by Pulse 96 94 99 Oximetry 03/06/18 03/06/18 03/06/18 06:58 07:00 07:05 Temperature Pulse Rate 74 73 73 Respiratory Rate Blood Pressure Blood Pressure [Left] O2 Sat by Pulse 94 96 96 Oximetry 03/06/18 03/06/18 03/06/18 07:10 07:13 07:15 Temperature Pulse Rate 70 81 94 H Respiratory Rate Blood Pressure Blood Pressure [Left] O2 Sat by Pulse 97 91 99 Oximetry 03/06/18 03/06/18 03/06/18 07:41 08:16 08:21 Temperature 97.7 F 97.9 F Pulse Rate 76 77 89 Respiratory 18 18 Rate Blood Pressure 110/58 111/69 Blood Pressure 111/69 115/54 [Left] O2 Sat by Pulse 98 Oximetry 03/06/18 03/06/18 03/06/18 08:39 09:39 10:39 Temperature Pulse Rate 77 77 77 Respiratory Rate Blood Pressure 119/69 126/69 138/77 Blood Pressure [Left] O2 Sat by Pulse Oximetry 03/06/18 03/06/18 03/06/18 11:39 12:31 12:40 Temperature Pulse Rate 78 74 73 Respiratory Rate Blood Pressure 118/72 111/56 117/62 Blood Pressure [Left] O2 Sat by Pulse Oximetry - Exam Breasts: deferred Cardiovascular: Regular rate Lungs: Clear to auscultation Abdomen: Present: soft (gravid ) Uterus: Present: normal (gravid ) FHR: category 2 Uterine Contraction Monitor Mode: External Uterine Tone Measurement Phase: Resting Extremities: normal - Labs Labs: Abnormal Labs 03/04/18 03/05/18 03/05/18 10:18 04:00 05:56 MCH 34 H MCHC 35 H RDW 13.0 L [place] % (Auto) 8.4 H Lymph # 1.0 L Seg Neutrophils % 77.5 H Magnesium 5.30 H 5.50 H 03/05/18 03/05/18 03/06/18 12:26 18:43 05:06 MCH MCHC RDW [place] % (Auto) Lymph # Seg Neutrophils % Magnesium 5.30 H 5.40 H 5.10 H Laboratory Results - last 24 hr 03/05/18 03/05/18 03/06/18 12:26 18:43 05:06 Magnesium 5.30 H 5.40 H 5.10 H
[2018-03-06] MEDS: TRIMOX PO SCH ×2 (13:48→22:49)
[2018-03-06] MEDS: ERY-TAB PO SCH ×2 (13:48→22:49)
[2018-03-06] MEDS: ROCEPHIN/NS 1 GM/50 ML 1 GM/50 ML BAG IV SCH (15:44)
[2018-03-07] MEDS: TRIMOX PO SCH ×3 (06:38→14:06)
[2018-03-07] MEDS: ERY-TAB PO SCH ×2 (06:38→14:05)
[2018-03-07] MEDS: LACTATED RINGERS 1,000 ML IV SCH (08:29)
[2018-03-07] MEDS: PRENATAL VITAMIN PO SCH (10:03)
--- NOTE | 2018-03-07 15:16 | Ultrasound Report ---
LIMITED OB ULTRASOUND: Premature rupture of membranes. Gestation: Felipe Position: Cephalic STEPH = 1.8 cm Heart Rate: 143 BPM Estimated gestational age 33 weeks one day Impression: Oligohydramnios. BIOPHYSICAL PROFILE: 2 - breathing movements 2 - movements 2 - posture and tone 0 - Qualitative amniotic fluid volume 6 - TOTAL SCORE OF POSSIBLE 8 Heart Rate (bpm) 143
[2018-03-07] MEDS: ROCEPHIN/NS 1 GM/50 ML 1 GM/50 ML BAG IV SCH (15:18)
[2018-03-07 15:41] LABS: Hematocrit 36.7 % (30.3-42.9); Hemoglobin 12.6 gm/dl (10.1-14.3); Mean Corpuscular HGB Conc 34 % (30-34); Mean Corpuscular Hemoglobin 34 pg (28-32); Mean Corpuscular Volume 98 fl (79-97); Platelet Count 172 K/mm3 (140-440); Red Blood Count 3.75 M/mm3 (3.65-5.03); Red Cell Distribution Width 13.3 % (13.2-15.2)
--- NOTE | 2018-03-07 15:43 | Progress Note ---
Assessment and Plan Assesment . Felipe IUP at 33 1/7 weeks . PPROM . Prior C/S . IVF Preg . Min spotting - Plan . Continuous EFM . Delivery at 34 weeks . BPP Twice per week- once today 01/31 ( off for fluid) . Close observation of status Delivery for S/S of chorio or compromise Subjective - Subjective Date of service: 03/07/18 Principal diagnosis: IUP at 33w0d; PPROM, Interval history: This is a 37 yo EDC 04/24/18at 32 weeks came into triage this am complaining of big gush of fluid and some contractions. She was checked and noted to be pooling +, fern neg, nitrazine + and STEPH noted to be 6.3. She is apatient with transfer of care into [facility] at 29 weeks. She is advanced maternal age and declined MFM evaluation. She is previous csec ( transverse) and desires repeat csec. She was dx at 24 weeks with UTI and urine cultrue still positive after treatment with macrobid. She is also rubella Immune. Patient reports: loss of fluid, vaginal bleeding (spotting), contractions (rare) , no new complaints Objective - Vital Signs Vital Signs: Vital Signs - 12hr 03/07/18 03/07/18 03/07/18 04:39 06:35 06:36 Temperature Pulse Rate 74 72 64 Respiratory Rate Blood Pressure 92/54 103/60 Blood Pressure [Left] O2 Sat by Pulse 98 Oximetry 03/07/18 03/07/18 03/07/18 06:40 06:45 06:50 Temperature Pulse Rate 68 70 67 Respiratory Rate Blood Pressure 110/67 Blood Pressure [Left] O2 Sat by Pulse 99 100 98 Oximetry 03/07/18 03/07/18 03/07/18 06:55 07:00 07:04 Temperature Pulse Rate 75 61 62 Respiratory Rate Blood Pressure Blood Pressure [Left] O2 Sat by Pulse 98 98 94 Oximetry 03/07/18 03/07/18 03/07/18 07:05 07:10 07:15 Temperature Pulse Rate 61 76 62 Respiratory Rate Blood Pressure Blood Pressure [Left] O2 Sat by Pulse 96 94 97 Oximetry 03/07/18 03/07/18 03/07/18 07:20 07:25 07:30 Temperature Pulse Rate 61 67 Respiratory Rate Blood Pressure Blood Pressure [Left] O2 Sat by Pulse 96 98 100 Oximetry 03/07/18 03/07/18 03/07/18 07:35 07:39 07:40 Temperature Pulse Rate 63 63 68 Respiratory Rate Blood Pressure 103/58 Blood Pressure [Left] O2 Sat by Pulse 100 94 Oximetry 03/07/18 03/07/18 03/07/18 07:45 07:50 07:55 Temperature Pulse Rate 63 63 69 Respiratory Rate Blood Pressure Blood Pressure [Left] O2 Sat by Pulse 98 97 94 Oximetry 03/07/18 03/07/18 03/07/18 08:00 08:01 08:03 Temperature 96.6 F L Pulse Rate 74 83 68 Respiratory 18 Rate Blood Pressure Blood Pressure 99/58 [Left] O2 Sat by Pulse 98 93 100 Oximetry 03/07/18 03/07/18 03/07/18 08:05 08:07 11:12 Temperature 96.8 F L Pulse Rate 65 70 68 Respiratory 18 Rate Blood Pressure 99/58 Blood Pressure 120/62 [Left] O2 Sat by Pulse 99 Oximetry 03/07/18 03/07/18 03/07/18 11:16 15:27 15:31 Temperature 97.4 F L Pulse Rate 68 77 77 Respiratory 18 Rate Blood Pressure 120/62 122/74 Blood Pressure 122/74 [Left] O2 Sat by Pulse Oximetry - Exam Breasts: normal Cardiovascular: Regular rate, Normal S1 Lungs: Clear to auscultation, Normal air movement Abdomen: Present: normal appearance, soft, normal bowel sounds. Absent: distention, tenderness, guarding Vulva: both: normal Uterus: Present: normal, firm, fundal height above umbilicus. Absent: bogginess , tenderness FHR: category 1 Uterine Contraction Pattern: Absent Uterine Tone Measurement Phase: Resting Uterine Contraction Intensity: Mild Extremities: normal Deep Tendon Reflex Grade: Normal +2 - Labs Labs: Abnormal Labs 03/04/18 03/05/18 03/05/18 10:18 04:00 05:56 MCV MCH 34 H MCHC 35 H RDW 13.0 L [place] % (Auto) 8.4 H Lymph # 1.0 L Seg Neutrophils % 77.5 H Magnesium 5.30 H 5.50 H 03/05/18 03/05/18 03/06/18 12:26 18:43 05:06 MCV MCH MCHC RDW [place] % (Auto) Lymph # Seg Neutrophils % Magnesium 5.30 H 5.40 H 5.10 H 03/07/18 15:19 MCV 98 H MCH 34 H MCHC RDW [place] % (Auto) Lymph # Seg Neutrophils % Magnesium Laboratory Results - last 24 hr 03/07/18 15:19 WBC 8.7 RBC 3.75 Hgb 12.6 Hct 36.7 MCV 98 H MCH 34 H MCHC 34 RDW 13.3 Plt Count 172
--- NOTE | 2018-03-07 20:38 | Anesthesia Consultation ---
Anesthesia Consult and Med Hx Date of service: 03/07/18 - Airway Anesthetic Teeth Evaluation: Good ROM Head & Neck: Adequate Mallampati Class: Class II Intubation Access Assessment: Probably Good - Pulmonary Exam CTA: Yes - Cardiac Exam Cardiac Exam: RRR - Pre-Operative Health Status Proposed Anesthetic Plan: Epidural, Spinal - Pre-Anesthesia Comment Pre-Anesthesia Comments: labor/previous c section ruptured - Pulmonary Hx Asthma: No COPD: No Hx Pneumonia: No - Cardiovascular System Hx Hypertension: No - Central Nervous System Hx Seizures: No Hx Psychiatric Problems: No - Endocrine Hx Renal Disease: No Hx End Stage Renal Disease: No Hx Hypothyroidism: No Hx Hyperthyroidism: No - Hematic Hx Anemia: No Hx Sickle Cell Disease: No - Other Systems Hx Alcohol Use: No
[2018-03-07] MEDS ORDERED: ANCEF/STERILE WATER 2 GM/20 ML 2 GM/20 ML SYRINGE IV ONE (20:53)
--- NOTE | 2018-03-07 20:56 | Event Note ---
Date: 03/07/18 Nurse called reporting patient with contractions and pain ranked at 7/10. She had a pelvic exam revealing moderate bloody show and 1-2/80/-2. At this time i would recommend a repeat csec for delivery. Patient has already had a course of steroids, magnesium for neuroprotection and latency abx secondary to PROm. Discussed r/b/a of repeat csec whcih include but not limited to bleeding, infection,damage to pelvic and non pelvic organs,risk of blood clots, chronic pelvic pain, risk of anesthesia, risk hysterectomy and . patient agrees entirly to proceed. NICCU and anesthesia contacted and aware.
[2018-03-07] MEDS ORDERED: ePHEDrine SULFATE ONE (20:57)
[2018-03-07] MEDS ORDERED: XYLOCAINE MPF 2% ONE ×2 (20:57→21:10)
[2018-03-07] MEDS ORDERED: PEPCID IV NR (21:00)
[2018-03-07] MEDS ORDERED: REGLAN IV NR (21:00)
[2018-03-07] MEDS ORDERED: ANCEF/STERILE WATER 2 GM/20 ML 2 GM/20 ML SYRINGE IV NR (21:00)
[2018-03-07] MEDS ORDERED: NEO SYNEPHRINE/NS Syringe(OR USE) IV ONE (21:00)
[2018-03-07] MEDS ORDERED: BICITRA PO ONE (21:00)
[2018-03-07] MEDS ORDERED: PITOCin/NS 20 UNIT/1000ML DRIP 20 UNITS/1,000 ML BAG IV SCH ×2 (21:00→23:00)
[2018-03-07] MEDS ORDERED: ceFAZolin 2 GM in NACL 0.9% 100 ML IV ONE (21:31)
[2018-03-07] MEDS ORDERED: LACTATED RINGERS 1,000 ML IV SCH (22:00)
[2018-03-07] MEDS ORDERED: ASTRAMORPH PF 10MG/10ML ONE (22:11)
[2018-03-07] MEDS ORDERED: TORADOL IV PRN ×2 (22:39)
[2018-03-07] MEDS ORDERED: NARCAN 0.4 MG/1 ML IV PRN (22:39)
[2018-03-07] MEDS ORDERED: PHENERGAN PR PRN (22:39)
[2018-03-07] MEDS ORDERED: TUCKS PAD TP PRN (22:39)
[2018-03-07] MEDS ORDERED: PERCOCET 5/325 PO PRN (22:39)
[2018-03-07] MEDS ORDERED: LANSINOH TP PRN (22:39)
--- NOTE | 2018-03-07 22:45 | Procedure Note ---
OB Delivery Note - Delivery Date of Delivery: 03/07/18 Surgeon: KIARA GARDNER Estimated blood loss: 500cc - Section Preop diagnosis: repeat Postop diagnosis: same section procedure: repeat low transverse Disposition: PACU Complications: none Narrative: see op note - B at 1 minute: 8 at 5 minutes: 9 Infant Gender: Male
--- NOTE | 2018-03-07 22:51 | Operative Report ---
Operative Report Operative Report: DATE OF OPERATION:03/07/18 PREOPERATIVE DIAGNOSES: 1. IUP 33+1 weeks 2. PPROM 3. Non reasuring NST 4. Early labor 5. labor 6. IVF 7. Previous POSTOPERATIVE DIAGNOSES: 1. GEGE OPERATION PERFORMED: Repeat low transverse . SURGEON: Coleen Gilmore MD ANESTHESIA: Spinal. ESTIMATED BLOOD LOSS: 500 mL. FINDINGS: A viable male weighing 4 pounds 5 ounces with Apgars of 8 and 9. COMPLICATIONS: None. DISPOSITION: Stable. DESCRIPTION OF OPERATION: After informed consent was obtained, the patient was brought back to the operative suite where adequate spinal anesthesia was obtained. The patient was then placed in the dorsal supine position and prepped and draped in the sterile fashion. A repeat Pfannenstiel skin incision was made with a blade and carried down through the subcutaneous tissues to the fascia, which was extended in the transverse fascia with Betts scissors. The fascial incision was then dissected off the rectus muscles both bluntly and sharply. The rectus muscle was in the midline. The peritoneum was entered bluntly. The peritoneal incision was then extended both superiorly and inferiorly with good visualization of the underlying bowel and bladder. The bladder blade was placed, and the vesicouterine fascia was incised to create a bladder flap in a low transverse position. This was developed digitally. A low transverse uterine incision was made with the blade and carried down through the layers of the uterus until membranes bulged through the incision. The uterine incision was then extended digitally. Hand was placed inside the pelvis, and the head was brought up out of the pelvis and delivered atraumatically with gentle fundal pressure. Prior to the head being delivered, actually through the skin, the sound of the baby starting to cry was noted. After the head was delivered, the mouth and nares were aggressively bulb suctioned. Remainder of the was delivered, and the infant was passed to the awaiting nursing staff for additional care. Cord was doubly clamped and cut and cord blood was obtained. The placenta was then manually extracted, and the uterus was exteriorized. The uterus was cleaned of remaining clot. The uterine incision was readily identified and closed in two layers, first one with running locking followed by second imbricating layer of 0 Vicryl. The vesicouterine fascia was then reapproximated with 2-0 Vicryl. Thissel and surgicel was used for excellent hemostasis. The adnexa were within normal limits. The uterus was placed back inside the pelvis. Copious irrigation and inspection of the incision was satisfactory. The peritoneum was then closed with 2-0 Vicryl in a running fashion. The fascia was closed with 1 PDS from one angle to the next. Subcutaneous tissues were copiously irrigated, and final bleeders were cauterized. The incision was then closed with Ruy needle. Count correct. Patient tolerated procedure well.
[2018-03-07] MEDS ORDERED: SODIUM CHLORIDE FLUSH SYRINGE 10 ML IV NR (23:00)
[2018-03-07] MEDS ORDERED: D5LR 1,000 ML IV SCH (23:00)
[2018-03-07] MEDS ORDERED: DILAUDID ONE ×2 (23:18→23:40)
[2018-03-07] MEDS: DILAUDID IV PRN ×2 (23:18→23:45)
[2018-03-08] MEDS ORDERED: BOOSTRIX IM ONE (06:00)
[2018-03-08] MEDS ORDERED: M-M-R II VACCINE SUB-Q ONE (06:00)
[2018-03-08 08:23] LABS: Alanine Aminotransferase 12 units/L (7-56); Albumin 2.9 g/dL (3.9-5); BUN/Creatinine Ratio 12; Blood Urea Nitrogen 6 mg/dL (7-17); Calcium 8.7 mg/dL (8.4-10.2); Hemolysis Index 3
[2018-03-08] MEDS: PRENATAL VITAMIN PO SCH (11:05)
[2018-03-08] MEDS: FEOSOL PO SCH (11:05)
[2018-03-08 14:11] LABS: Hematocrit 38.6 % (30.3-42.9); Hemoglobin 13.2 gm/dl (10.1-14.3)
[2018-03-08] MEDS: ROCEPHIN/NS 1 GM/50 ML 1 GM/50 ML BAG IV SCH (14:31)
[2018-03-08] MEDS: ERY-TAB PO SCH ×2 (14:32→21:48)
[2018-03-08] MEDS: TRIMOX PO SCH ×2 (14:32→21:48)
--- NOTE | 2018-03-08 15:05 | Progress Note ---
Assessment and Plan Assesment POD1 s/p repeta csec for PPROm/ptl doing weell pain controlled pumping milk continue present mgt Subjective - Subjective Date of service: 03/08/18 Principal diagnosis: s/p repeat csec Interval history: This is a 37 yo EDC 04/24/18at 32 weeks came into triage this am complaining of big gush of fluid and some contractions. She was checked and noted to be pooling +, fern neg, nitrazine + and STEPH noted to be 6.3. She is apatient with transfer of care into [facility] at 29 weeks. She is advanced maternal age and declined MFM evaluation. She is previous csec ( transverse) and desires repeat csec. She was dx at 24 weeks with UTI and urine cultrue still positive after treatment with macrobid. She is also rubella Immune. Patient reports: appetite normal, voiding normally, pain well controlled, flatus , ambulating normally [place]: doing well, in NICU Objective - Vital Signs Latest vital signs: Vital Signs Temp Pulse Resp BP BP Pulse Ox 03/08/18 08:51 98.2 F 81 22 140/69 98 03/08/18 03:57 77 97 03/08/18 03:56 97.2 F L 84 18 97 03/08/18 03:55 97.2 F L 78 18 123/79 97 03/08/18 02:24 71 99 03/08/18 01:36 98.0 F 85 16 108/74 95 03/08/18 01:03 81 98 03/08/18 00:30 98.3 F 91 H 15 120/72 98 03/08/18 00:20 79 20 126/75 98 03/08/18 00:10 76 21 125/88 97 03/08/18 00:00 80 22 117/85 97 03/07/18 23:50 76 25 H 120/85 97 03/07/18 23:40 73 24 111/70 97 03/07/18 23:30 75 18 111/69 98 03/07/18 23:20 81 18 117/81 98 03/07/18 23:10 81 15 121/78 99 03/07/18 23:00 66 16 104/48 100 03/07/18 22:54 97.6 F 72 14 03/07/18 19:40 71 107/65 03/07/18 15:31 77 122/74 03/07/18 15:27 97.4 F L 77 18 122/74 Intake and Output 03/07/18 03/08/18 03/08/18 23:59 07:59 15:59 Intake Total 200 600 Output Total 2800 900 1600 Balance -2600 -900 -1000 Intake: Oral 200 600 Output: Urine 2800 900 1600 Indwelling Catheter 1000 Uretheral (Ahn) 1500 900 Void 1000 600 Other: Total, Intake Amount 200 120 Total, Output Amount 1000 600 # Voids Void 1 Estimated Blood Loss 500 - Exam Breasts: Present: normal Cardiovascular: Present: Regular rate, Normal S1 Lungs: Present: Clear to auscultation, Normal air movement Abdomen: Present: normal appearance, soft, normal bowel sounds. Absent: distention, tenderness, guarding Vulva: both: normal Uterus: Present: normal, firm, fundal height below umbilicus. Absent: bogginess , tenderness Extremities: Present: normal Deep Tendon Reflex Grade: Normal +2 Incision: Present: normal, dry, intact - Labs Labs: Abnormal lab results 03/07/18 03/07/18 03/08/18 Range/Units 15:19 22:15 07:32 MCV 98 H (79-97) fl MCH 34 H (28-32) pg POC ABG pH 7.330 L (7.35-7.45) POC ABG pCO2 49.0 H (35-45) POC ABG pO2 19 L (80-105) Sodium 135 L (137-145) mmol/L BUN 6 L (7-17) mg/dL Creatinine 0.5 L (0.7-1.2) mg/dL Total Protein 5.4 L (6.3-8.2) g/dL Albumin 2.9 L (3.9-5) g/dL
[2018-03-08] MEDS: NORCO 5/325 PO PRN (21:47)
[2018-03-08] MEDS: MOTRIN PO PRN (21:47)
[2018-03-09] MEDS: MOTRIN PO PRN ×3 (04:38→18:21)
[2018-03-09] MEDS: NORCO 5/325 PO PRN ×2 (04:38→17:00)
[2018-03-09] MEDS: ERY-TAB PO SCH ×3 (05:36→21:29)
[2018-03-09] MEDS: TRIMOX PO SCH ×3 (05:36→21:28)
--- NOTE | 2018-03-09 07:46 | Progress Note ---
Assessment and Plan Assesment POD 2 s/p repeat doing well pain controlled pumping milk consider d/c home tomorrow Subjective - Subjective Date of service: 03/09/18 Principal diagnosis: s/p repeat csec Interval history: This is a 37 yo EDC 04/24/18at 32 weeks came into triage this am complaining of big gush of fluid and some contractions. She was checked and noted to be pooling +, fern neg, nitrazine + and STEPH noted to be 6.3. She is apatient with transfer of care into [facility] at 29 weeks. She is advanced maternal age and declined MFM evaluation. She is previous csec ( transverse) and desires repeat csec. She was dx at 24 weeks with UTI and urine cultrue still positive after treatment with macrobid. She is also rubella Immune. Patient reports: appetite normal, voiding normally, pain well controlled, flatus , ambulating normally [place]: doing well, in NICU Objective - Vital Signs Latest vital signs: Vital Signs Temp Pulse Resp BP BP Pulse Ox 03/09/18 00:53 98.6 F 78 18 91/43 93 03/08/18 18:49 97.9 F 78 20 118/69 99 03/08/18 16:42 97.7 F 22 120/79 03/08/18 08:51 98.2 F 81 22 140/69 98 Intake and Output 03/08/18 03/08/18 03/09/18 15:59 23:59 07:59 Intake Total 600 Output Total 1600 Balance -1000 Intake: Oral 600 Output: Urine 1600 Indwelling Catheter 1000 Void 600 Other: Total, Intake Amount 120 Total, Output Amount 600 # Voids Void 1 - Exam Breasts: Present: normal Cardiovascular: Present: Regular rate, Normal S1 Lungs: Present: Clear to auscultation, Normal air movement Abdomen: Present: normal appearance, soft, normal bowel sounds. Absent: distention, tenderness, guarding Vulva: both: normal Uterus: Present: normal, firm, fundal height below umbilicus. Absent: bogginess , tenderness Extremities: Present: normal Deep Tendon Reflex Grade: Normal +2 Incision: Present: normal, dry, intact - Labs Labs: Abnormal lab results 03/08/18 Range/Units 07:32 Sodium 135 L (137-145) mmol/L BUN 6 L (7-17) mg/dL Creatinine 0.5 L (0.7-1.2) mg/dL Total Protein 5.4 L (6.3-8.2) g/dL Albumin 2.9 L (3.9-5) g/dL
[2018-03-09] MEDS: PRENATAL VITAMIN PO SCH (12:17)
[2018-03-09] MEDS: FEOSOL PO SCH (12:18)
[2018-03-09] MEDS: ROCEPHIN/NS 1 GM/50 ML 1 GM/50 ML BAG IV SCH (14:36)
[2018-03-10] MEDS: MOTRIN PO PRN ×3 (01:48→21:42)
[2018-03-10] MEDS: NORCO 5/325 PO PRN ×2 (01:48→11:06)
--- NOTE | 2018-03-10 08:41 | Progress Note ---
Assessment and Plan A: POD#3 s/p repeat section doing well in NICU P: PIH labs now Consider discharge later today Subjective - Subjective Date of service: 03/10/18 Principal diagnosis: s/p repeat csec Interval history: No overnight events. BPs mildly elevated overnight. Patient reports: appetite normal, voiding normally, pain well controlled, flatus , ambulating normally [place]: in NICU Objective - Vital Signs Latest vital signs: Vital Signs Temp Pulse Resp BP BP Pulse Ox 03/10/18 02:48 16 03/10/18 01:48 20 03/09/18 21:00 98.3 F 86 140/90 03/09/18 19:11 97.8 F 81 20 148/90 03/09/18 18:00 20 03/09/18 15:59 98.8 F 74 18 116/82 99 03/09/18 09:00 98.9 F - Exam Breasts: Present: deferred Cardiovascular: Present: Regular rate Lungs: Present: Clear to auscultation Abdomen: Present: soft Uterus: Present: fundal height at umbilicus Extremities: Present: edema (trace ) Incision: Present: intact
[2018-03-10 10:10] LABS: Alanine Aminotransferase 11 units/L (7-56); Uric Acid 4.4 mg/dL (3.5-7.6)
[2018-03-10 10:11] LABS: Hematocrit 36.5 % (30.3-42.9); Hemoglobin 12.5 gm/dl (10.1-14.3); Mean Corpuscular HGB Conc 34 % (30-34); Mean Corpuscular Hemoglobin 33 pg (28-32); Mean Corpuscular Volume 98 fl (79-97); Platelet Count 206 K/mm3 (140-440); Red Blood Count 3.75 M/mm3 (3.65-5.03); Red Cell Distribution Width 13.1 % (13.2-15.2)
[2018-03-10] MEDS: ERY-TAB PO SCH ×2 (11:05→21:27)
[2018-03-10] MEDS: TRIMOX PO SCH ×2 (11:06→21:27)
[2018-03-10] MEDS: PRENATAL VITAMIN PO SCH (11:06)
[2018-03-10] MEDS: FEOSOL PO SCH (12:05)
[2018-03-10 13:00] LABS: Bacteria,Urine 1+ /HPF (Negative); Bilirubin,Urine NEG (Negative); Blood,Urine MOD (Negative); Color,Urine Yellow (Yellow); Mucus,Urine FEW /HPF; Protein,Urine <15 mg/dL mg/dL (Negative); Urobilinogen,Urine < 2.0 mg/dL (<2.0)
[2018-03-10] MEDS: ROCEPHIN/NS 1 GM/50 ML 1 GM/50 ML BAG IV SCH (16:04)
--- NOTE | 2018-03-10 17:10 | History and Physical Report ---
History of Present Illness Date of admission: 03/04/18 11:28 Past History Past Medical History: no pertinent history Past Surgical History: section Family/Genetic History: hypertension (father) - Obstetrical History : 3 Medications and Allergies Allergies Allergy/AdvReac Type Severity Reaction Status Date / Time No Known Allergies Allergy Verified 03/04/18 06:51 Home Medications Medication Instructions Recorded Confirmed Last Taken Type Pnv No.95/Ferrous Fum/Folic AC 1 tab PO QDAY 03/04/18 03/04/18 03/03/18 22:00 History [ Formula Tablet] Docusate Sodium [Colace] 100 mg PO BID PRN #30 capsule 03/07/18 Unknown Rx Ferrous Sulfate 325 mg PO BID #60 tablet. 03/07/18 Unknown Rx Ibuprofen [Motrin] 600 mg PO Q8H PRN #30 tablet 03/07/18 Unknown Rx oxyCODONE /ACETAMINOPHEN [Percocet 1 tab PO Q6HR PRN #30 tablet 03/07/18 Unknown Rx 5/325] Active Meds: Active Medications Acetaminophen (Tylenol) 650 mg PO Q4H PRN PRN Reason: Pain MILD(1-3)/Fever >100.5/DOWNEY Last Admin: 03/07/18 03:22 Dose: 650 mg Acetaminophen/Hydrocodone Bitart ([place] 5/325) 1 each PO Q6H PRN PRN Reason: Pain, Moderate (4-6) Last Admin: 03/10/18 11:06 Dose: 1 each Al Hydrox/Mg Hydrox/Simethicone (Alum-Mag Hydrox-Simeth [id number]/5ml) 30 ml PO Q6H PRN PRN Reason: Indigestion Amoxicillin (Trimox) 250 mg PO Q8HR [facility]; Protocol Stop: 03/11/18 13:08 Last Admin: 03/10/18 11:06 Dose: 250 mg Diphenhydramine HCl (Benadryl) 25 mg PO Q6H PRN PRN Reason: Itching Last Admin: 03/08/18 04:07 Dose: 25 mg Docusate Sodium (Colace) 100 mg PO Q12H PRN PRN Reason: Constipation Erythromycin (Axel-Tab) 250 mg PO Q8HR KEVIN Last Admin: 03/10/18 11:05 Dose: 250 mg Ferrous Sulfate (Feosol) 325 mg PO QDAY [facility] Last Admin: 03/10/18 12:05 Dose: 325 mg Hydromorphone HCl (Dilaudid) 0.5 mg IV Q10MIN PRN PRN Reason: Pain , Severe (7-10) Last Admin: 03/07/18 23:45 Dose: 0.5 mg Ceftriaxone Sodium (Rocephin/Ns 1 Gm/50 Ml) 1 gm in 50 mls @ 100 mls/hr IV Q24H KEVIN; Protocol Last Admin: 03/10/18 16:04 Dose: 100 mls/hr Magnesium Sulfate (Magnesium Sulfate 40gm/1000ml) 40 gm in 1,000 mls @ 25 mls/ hr IV DIRECT KEVIN Last Admin: 03/06/18 03:40 Dose: 2 gm/hr, 50 mls/hr Dextrose/Lactated Ringer's (D5lr) 1,000 mls @ 125 mls/hr IV DIRECT KEVIN Oxytocin/Sodium Chloride (Pitocin/Ns 20 Unit/1000ml Drip) 20 units in 1,000 mls @ 250 mls/hr IV DIRECT KEVIN Ibuprofen (Motrin) 800 mg PO Q6H PRN PRN Reason: Pain, Mild (1-3) Last Admin: 03/10/18 11:07 Dose: 800 mg Ketorolac Tromethamine (Toradol) 15 mg IV Q6H PRN PRN Reason: Pain, Mild (1-3) Stop: 03/12/18 22:38 Last Admin: 03/08/18 00:15 Dose: 15 mg Ketorolac Tromethamine (Toradol) 30 mg IV Q6H PRN PRN Reason: Pain, Moderate (4-6) Stop: 03/12/18 22:38 Last Admin: 03/08/18 12:15 Dose: 30 mg Magnesium Hydroxide (Milk Of Magnesia) 30 ml PO QHS PRN PRN Reason: Laxative Effect Multi-Ingredient Ointment (Lansinoh) 1 applic TP PRN PRN PRN Reason: dryness/cracking Multivitamins/Iron/Calcium ( Vitamin) 1 each PO QDAY KEVIN Last Admin: 03/10/18 11:06 Dose: 1 each Naloxone HCl (Narcan 0.4 Mg/1 Ml) 0.1 mg IV Q2MIN PRN PRN Reason: Res Rate </= 8 or 02 SAT < 92% Ondansetron HCl (Zofran) 4 mg IV Q6H PRN PRN Reason: Nausea And Vomiting Oxycodone/Acetaminophen (Percocet 5/325) 1 tab PO Q6H PRN PRN Reason: Pain, Moderate (4-6) Promethazine HCl (Phenergan) [address] Q6H PRN PRN Reason: N/V IF NPO AND NO IV ACCESS Senna/Docusate Sodium (Senokot S) 2 tab PO Q12H PRN PRN Reason: Laxative Effect Simethicone (Mylicon) 80 mg PO Q6H PRN PRN Reason: Gas pain Witch Melissa/Glycerin (Tucks Pad) 1 each TP PRN PRN PRN Reason: Hemorrhoids/cleansing/soothing - Vital Signs Vital signs: Vital Signs Pulse BP 109 H 128/82 03/04/18 06:52 03/04/18 06:52 Temp Pulse Resp BP Pulse Ox 98.1 F 88 20 145/96 95 03/10/18 07:46 03/10/18 07:46 03/10/18 07:46 03/10/18 07:46 03/10/18 07:46 Results Result Diagrams: 03/10/18 09:17 03/10/18 09:17 Abnormal lab results 03/10/18 03/10/18 Range/Units 09:17 09:17 MCV 98 H (79-97) fl MCH 33 H (28-32) pg RDW 13.1 L (13.2-15.2) % Creatinine 0.6 L (0.7-1.2) mg/dL Lactate Dehydrogenase 198 H (91-180) units/L All other labs normal.
--- NOTE | 2018-03-10 17:12 | Discharge Summary ---
Providers - Providers Date of Admission: 03/04/18 11:28 Date of discharge: 03/10/18 Attending physician: KIARA GARDNER MD 03/04/18 11:36 Consult to Physician [CONS] Urgent Comment: Consult to [facility] Consulting Provider: KIARA GARDNER Physician Instructions: Reason For Exam: PROM Primary care physician: KIARA GARDNER MD Hospitalization Reason for admission: rupture of membranes Delivery: Procedure: section, repeat low transverse Procedure details: Please see operative note. Incision: intact Other procedures: none complications: other (Gestational HTN ) Discharge diagnosis: delivery [place] baby: male Hospital course: Pt was admitted at 33 wks with PPROM. She was started on latency antibiotics and steroids for lung maturity. The patient ultimately went into labor four days after admission, and underwent a repeat section which she tolerated well. Her postoperative course was complicated by hypertension in the mild range. She met discharge criteria on POD#3 and will follow up in 1 week for a blood pressure check at the office. Condition at discharge: Stable Disposition: DC- TO HOME OR SELFCARE - Discharge Diagnoses (1) premature rupture of membranes (PPROM) delivered, current hospitalization Status: Acute (2) Previous delivery affecting , delivered Status: Acute (3) Advanced maternal age (AMA) in Status: Acute Plan - Discharge Medications Prescriptions: Docusate Sodium [Colace] 100 mg PO BID PRN #30 capsule PRN Reason: Constipation Ferrous Sulfate 325 mg PO BID #60 tablet. Ibuprofen [Motrin] 600 mg PO Q8H PRN #30 tablet PRN Reason: Pain oxyCODONE /ACETAMINOPHEN [Percocet 5/325] 1 tab PO Q6HR PRN #30 tablet PRN Reason: Pain - Provider Discharge Summary Activity: routine, no sex for 6 weeks, no heavy lifting 4 weeks, no strenuous exercise Diet: routine Instructions: routine Additional instructions: [] Smoking cessation referral if applicable(refer to patient education folder for contact #) [] Refer to [facility] Booklet Call your doctor immediately for: * Fever > 100.5 * Heavy vaginal bleeding ( >1 pad per hour) * Severe persistent headache * Shortness of breath * Reddened, hot, painful area to leg or breast * Drainage or odor from incision. * Keep incision clean and dry at all times and follow doctor's instructions regarding bathing/showering - Follow up plan Follow up: GURPREET RANKIN MD [Staff Physician] - 7 Days
[2018-03-10 17:42] VITALS: BP 145/85
== END 2018-03-10 21:55 | disposition home or self-care (01) | DRG 765 ==
LOC: TRG 06:32 → LD 11:28 → OB 03-08 01:16
PROVIDERS: ADMIT Obstetrics & Gynecology; ATTEND Obstetrics & Gynecology
PROC: 10D00Z1 Extraction of Products of Conception, Low, Open Approach (ICD-10-PCS; principal; 2018-03-07)
PROC: 3E0234Z Introduction of Serum, Toxoid and Vaccine into Muscle, Percutaneous Approach (ICD-10-PCS; 2018-03-08)
DX: O34.211 Maternal care for low transverse scar from previous cesarean delivery (principal); O60.14X0 Preterm labor third trimester with preterm delivery third trimester, not applicable or unspecified; O76 Abnormality in fetal heart rate and rhythm complicating labor and delivery; O13.5 Gestational [pregnancy-induced] hypertension without significant proteinuria, complicating the puerperium; O42.913 Preterm premature rupture of membranes, unspecified as to length of time between rupture and onset of labor, third trimester; Z37.0 Single live birth; Z82.49 Family history of ischemic heart disease and other diseases of the circulatory system; Z3A.32 32 weeks gestation of pregnancy; Z23 Encounter for immunization
CPT/HCPCS: 36415; 76815; 76816; 76819; 80053; 81001; 82565; 82803; 83615; 83735; 84450; 84460; 84550; 85014; 85018; 85025; 85027; 86850; 86900; 86901; 88307; 99211; G0463; J0290; J0456; J0690; J0696; J0702; J1170; J1885; J2274; J2370; J2590; J2765; J3105; J3475; J7050; J7120